=== PATIENT | male | born 1960 | race Caucasian/White ===

== ENCOUNTER → 2023-11-22 16:01 | Outpatient (REF) | payer BC, SELFPAY ==
[2023-11-22 17:00] LABS: ALT (SGPT) 31 U/L (0-50); AST (SGOT) 38 U/L (17-59); Albumin 4.6 g/dl (3.5-5.0); Alkaline Phosphatase 86 U/L (38-126); Blood Urea Nitrogen 22 mg/dl (9-20); Calcium 9.5 mg/dl (8.4-10.2); Carbon Dioxide 29 mmol/L (22-30); Chloride 101 mmol/L (98-107); Glucose 105 mg/dl (70-99); HDL Cholesterol 36 mg/dl; LDL Cholesterol, Calculated 66 mg/dl; Potassium 4.3 mmol/L (3.5-5.1); Sodium 141 mmol/L (135-145); Total Bilirubin 1.1 mg/dl (0.2-1.3); Total Cholesterol 132 mg/dl (50-199); Total Protein 7.7 g/dl (6.3-8.2); Triglyceride 152 mg/dl (10-149); Very Low Density Lipoprotein 30 mg/dl (0-30); eGFR > 60.00
[2023-11-22 17:28] LABS: PSA, Total - Screen 0.21 ng/ml (0.0-4.0); TSH 1.55 uIU/ml (0.47-4.68)
== END ==
LOC: RAD 16:01
PROVIDERS: ATTENDING PHYSICIAN Internal Medicine Endocrinology, Diabetes & Metabolism; FAMILY PHYSICIAN Family Medicine
DX: E04.2 Nontoxic multinodular goiter (principal); R35.1 Nocturia
CPT/HCPCS: 36415; 76536; 80053; 80061; 84443; G0103

== ENCOUNTER → 2024-03-06 14:14 | Outpatient (REF) | payer BC, SELFPAY | LOC: HWRCS 14:14 | PROVIDERS: ATTENDING PHYSICIAN Nurse Practitioner; FAMILY PHYSICIAN Family Medicine | DX: R07.89 Other chest pain (principal) | CPT/HCPCS: 93306 ==

== ENCOUNTER → 2024-04-09 16:59 | Outpatient (REF) | payer BC, SELFPAY ==
[2024-04-09 18:05] LABS: Blood Urea Nitrogen 22 mg/dl (9-20)
== END ==
LOC: RAD 16:59
PROVIDERS: ATTENDING PHYSICIAN Neurological Surgery; FAMILY PHYSICIAN Family Medicine
DX: M54.16 Radiculopathy, lumbar region (principal)
CPT/HCPCS: 36415; 72110; 84520

== ENCOUNTER → 2024-06-08 13:22 | Outpatient (REF) | payer BC, SELFPAY ==
[2024-06-08 15:39] LABS: ALT (SGPT) 25 U/L (0-50); AST (SGOT) 43 U/L (17-59); Albumin 4.9 g/dl (3.5-5.0); Alkaline Phosphatase 86 U/L (38-126); Blood Urea Nitrogen 22 mg/dl (9-20); Calcium 9.4 mg/dl (8.4-10.2); Carbon Dioxide 26 mmol/L (22-30); Chloride 101 mmol/L (98-107); Glucose 83 mg/dl (70-99); HDL Cholesterol 45 mg/dl; LDL Cholesterol, Calculated 67 mg/dl; Potassium 4.9 mmol/L (3.5-5.1); Sodium 139 mmol/L (135-145); Total Bilirubin 1.5 mg/dl (0.2-1.3); Total Cholesterol 128 mg/dl (50-199); Total Protein 7.6 g/dl (6.3-8.2); Triglyceride 82 mg/dl (10-149); Very Low Density Lipoprotein 16 mg/dl (0-30); eGFR > 60.00
[2024-06-08 16:11] LABS: PSA, Total - Screen 0.24 ng/ml (0.0-4.0); TSH 1.82 uIU/ml (0.47-4.68)
== END ==
LOC: HWRAD 13:22
PROVIDERS: ATTENDING PHYSICIAN Internal Medicine Endocrinology, Diabetes & Metabolism; FAMILY PHYSICIAN Family Medicine
DX: E04.2 Nontoxic multinodular goiter (principal); R35.1 Nocturia
CPT/HCPCS: 36415; 76536; 80053; 80061; 84443; G0103

== ENCOUNTER → 2024-08-11 09:49 | Outpatient (REF) | payer BC, SELFPAY ==
[2024-08-11 11:42] LABS: Blood Urea Nitrogen 19 mg/dl (9-20)
== END ==
LOC: RAD 09:49
PROVIDERS: ATTENDING PHYSICIAN Nurse Practitioner Adult Health; FAMILY PHYSICIAN Family Medicine
DX: M54.16 Radiculopathy, lumbar region (principal)
CPT/HCPCS: 36415; 72131; 82565; 84520

== ENCOUNTER → 2024-09-21 10:04 | Outpatient (REF) | payer BC, SELFPAY | LOC: EMG 10:04 | PROVIDERS: ATTENDING PHYSICIAN Physician Assistant; FAMILY PHYSICIAN Physician Assistant | DX: M96.0 Pseudarthrosis after fusion or arthrodesis (principal) | CPT/HCPCS: 95886; 95910 ==

== ENCOUNTER → 2025-02-06 15:55 | Outpatient (REF) | payer BC, SELFPAY | LOC: HWRAD 15:55 | PROVIDERS: ATTENDING PHYSICIAN Internal Medicine Endocrinology, Diabetes & Metabolism | DX: E04.2 Nontoxic multinodular goiter (principal) | CPT/HCPCS: 76536 ==

== ENCOUNTER → 2025-02-13 16:07 | Outpatient (REF) | payer BC, SELFPAY ==
[2025-02-13 17:38] LABS: ALT (SGPT) 14 U/L (0-50); AST (SGOT) 21 U/L (17-59); Albumin 4.8 g/dl (3.5-5.0); Alkaline Phosphatase 94 U/L (38-126); Blood Urea Nitrogen 16 mg/dl (9-20); Calcium 9.7 mg/dl (8.4-10.2); Carbon Dioxide 29 mmol/L (22-30); Chloride 107 mmol/L (98-107); Glucose 83 mg/dl (70-99); HDL Cholesterol 47 mg/dl; LDL Cholesterol, Calculated 69 mg/dl; Potassium 4.5 mmol/L (3.5-5.1); Sodium 143 mmol/L (135-145); Total Bilirubin 0.8 mg/dl (0.2-1.3); Total Cholesterol 131 mg/dl (50-199); Triglyceride 79 mg/dl (10-149); Very Low Density Lipoprotein 15 mg/dl (0-30); eGFR > 60.00
[2025-02-13 18:09] LABS: PSA, Total - Screen 0.24 ng/ml (0.0-4.0); TSH 1.55 uIU/ml (0.47-4.68)
== END ==
LOC: REG 16:07
PROVIDERS: ATTENDING PHYSICIAN Internal Medicine Endocrinology, Diabetes & Metabolism; FAMILY PHYSICIAN Physician Assistant
DX: E04.2 Nontoxic multinodular goiter (principal); R35.1 Nocturia
CPT/HCPCS: 36415; 80053; 80061; 84443; G0103

== ENCOUNTER 2025-04-01 13:08 | Emergency (ER) | payer BC, SELFPAY ==
[2025-04-01 13:10] VITALS: BP 188/91
--- NOTE | 2025-04-01 14:57 | ED.GENMED ---
History of Present Illness
General
Chief Complaint: Back Pain
Time Seen by Provider: 04/01/25 14:49
Nursing documentation reviewed up to this point in time: agreed with
History of Present Illness
History of Present Illness:
64-year-old male presents to the ER for treatment of lower back pain which has been present over the last several months but acutely worsened today. He denies any injury or trauma. He is status post surgery, most recent more than 4 months ago.
Patient states that the pain is in his usual area of discomfort with occasional feeling of numbness in his right lower extremity. He has been experiencing this since his surgery. He denies any weakness in his legs. He denies any loss of control
of bowel or bladder. He did not take any pain relievers this morning prior to arrival in the ER. He denies any fevers or chills. No recent injection or manipulation. Patient states the pain is so severe he cannot walk.
Past History
Past History
ED Past Medical History: CT; Negative Asthma, HTN, Hypercholesterolemia or NIDDM
ED Past Surgical History: Cardiac (Stent X3) and Other (Colonrectal fissure repair)
Social History
Tobacco: Non-smoker
Alcohol: None
Personal:
Living: with family
Family History
Family History: Diabetes and CAD
Phy Exam
Physical Exam
Physical Exam:
Vital signs reviewed, hypertensive, mucous membranes moist, conjunctiva pink, 2+ DP pulses present symmetric bilateral feet, back exam reveals well-healed surgical incision over lumbar spine, no midline pain on palpation, no erythema, no fluctuance,
no overlying skin changes to bilateral sacroiliac joints, intact sensation to light touch, positive perianal sensation, no foot drop, GCS is 15
Course
Orders/Labs/Results
Orders:
Orders
04/01/25 15:05
Ketorolac [Toradol] 15 mg IV NOW STA
04/01/25 15:06
Diazepam [Valium] 5 mg PO NOW STA
04/01/25 15:08
Lidocaine [Lidocaine 4% Patch] 1 patch TOPICAL ONCE ONE
Apply Lidocaine patch(s) to:: low back
04/01/25 16:56
HYDROmorphone [Dilaudid] 1 mg IV NOW STA
Lumbar Spine, 2 or 3 View [CR Lumbar Spine 2 Or 3 Views] Urgent
Comment:
Reason For Exam: pain, prior surgery
04/01/25 18:09
Oxycodone/Acetaminophen [Percocet 5/325] 1 tablet PO NOW STA
Prednisone [Deltasone] 50 mg PO NOW STA
Vital Signs
Initial and Last Documented VS:
Initial Vital Signs
Temp Pulse Resp BP Pulse Ox
97.8 F 84 18 188/91 97
04/01/25 13:10 04/01/25 13:10 04/01/25 13:10 04/01/25 13:10 04/01/25 13:10
Last Documented Vital Signs
Temp Pulse Resp BP Pulse Ox
98.5 F 76 16 149/78 97
04/01/25 16:02 04/01/25 18:00 04/01/25 18:00 04/01/25 18:00 04/01/25 18:00
Comment
Comment:
Patient given Toradol, lidocaine patch and Valium as initial treatment. He reports no improvement in pain although he does visibly appear to be moving on the stretcher more easily as he had had severe spasm at time of initial evaluation. Will give
dose of Dilaudid and reevaluate. Patient is concerned that there may have been some displacement in the hardware in his spine despite absence of history of trauma, will obtain x-ray to evaluate this concern
MDM/Problems Addressed
Differential Diagnosis Includes:
Differential diagnosis considered but not limited to acute exacerbation of chronic pain, muscle spasm hardware displacement, compression fracture along with other etiologies considered
Chronic conditions affecting care:
Chronic back pain, prior back surgery
*Radiology
Radiology exam reviewed: preliminary read by ED provider (I independently viewed and interpreted x-ray lumbar spine showing extensive presence of hardware, no gross malalignment) and radiology read reviewed (IMPRESSION: Postoperative and multilevel
degenerative changes of the lumbar spine without acute fracture or complication.)
*Pulse Oximetry
SaO2: 97
Oxygen Mode of Delivery: Room air
Patient hypoxic: no
*Critical Care Note
Total Time (30-74mins, 75-104mins- exclusive of procedures): Not Applicable
Patient Management
Escalation/DeEscalation of care consider admission/obs:
I reviewed prescription drug monitoring database information-last prescription written from December 13, [address] Portillo for small amount oxycodone and Valium
Update Note
Update Note:
Patient reported no change in discomfort after administration of Toradol, lidocaine patch and Valium, although he appeared significantly improved during further conversation. He was given dose of Dilaudid with again stated no improvement in pain.
I reviewed with patient and present at bedside no evidence for acute process seen on x-ray. I discussed with him continued use of medications at home including Medrol Dosepak, oxycodone and muscle relaxer. I discussed with him benefit of
follow-up with both pain management as scheduled for next week, in addition to contacting their spine surgeon as soon as possible for further discussion of care plan. I discussed with patient and present at bedside strict return precautions.
They had no questions prior to leaving department. Patient was able to ambulate utilizing his walker with a steady gait and no assistance to leave the department
ED Attending Note
-
Portions of this chart may have been created with voice recognition software.� Occasional wrong word or��sound alike� substitutions may have occurred due to the inherent limitations of voice recognition software.
Discharge Plan
Departure
Patient Disposition: Home (Routine Discharge)
Date of Disposition: 04/01/25
Time of Disposition: 18:10
Patient with high blood pressure during this ER visit?: Yes
Discharge Problem:
Acute back pain
Instructions: Low Back Pain (DC)
Prescriptions:
New
methylprednisolone [Medrol (Canelo)] 4 mg tablets,dose pack
See Rx Instructions .ROUTE .COMPLEX Qty: 21 0RF
Rx Instructions:
orally per package directions
oxycodone-acetaminophen [Percocet] 5-325 mg tablet
1 tab PO Q4HPRN PRN (Reason: pain) Qty: 8 0RF
diazepam [Valium] 5 mg tablet
5 mg PO BID PRN (Reason: muscle spasm) Qty: 7 0RF
No Action
atorvastatin 20 MG tablet
20 mg PO QPM
famotidine 40 MG tablet
40 mg PO HS
Nexium
40 mg PO BID
sennosides [senna] 1 TABLET tablet
2 tab PO BID 0RF
acetaminophen [Tylenol Extra Strength] 500 MG tablet
1,000 mg PO Q6H Qty: 60 0RF
Rx Instructions:
Do not exceed >4000 mg daily.
docusate sodium 100 MG capsule
100 mg PO BID 0RF
hydromorphone 2 MG tablet
2 mg PO Q4HPRN PRN (Reason: moderate-severe pain) Qty: 40 0RF
Rx Instructions:
1 tab moderate pain or 2 if pain severe
dx removal of hardware
ongoing therapy
aspirin [Ion Low Dose Aspirin] 81 MG tablet,delayed release (DR/EC)
81 mg PO DAILY Qty: 0 0RF
Rx Instructions:
Resume 02/01/21.
cyclobenzaprine 10 MG tablet
10 mg PO TIDPRN PRN (Reason: back pain) Qty: 13 0RF
methocarbamol 750 mg tablet
750 - 1,500 mg PO Q8H Qty: 20 0RF
Referrals:
Lewis Baldwin PA [Family Provider, Family Practice]
Activity Restrictions/Additional Instructions:
Please contact your surgeon in the morning to schedule appointment for reevaluation and further care. Return to the ER for any concerns including but not limited to control pain, difficulty urinating, weakness
Interventions
Interventions:
*Risk Screen - Suicide Last Done: 04/01/25 13:10
*General Assessment Last Done: 04/01/25 13:10
*Neglect/Abuse Screening Last Done: 04/01/25 15:42
*ED- Fall Risk Assessment Last Done: 04/01/25 15:40
*ED COVID-19 Vaccine History Last Done: 04/01/25 15:40
*Nursing Disposition Last Done: 04/01/25 18:40
ED-Musculoskeletal Assessment Last Done: 04/01/25 15:42
Discharge Date and Time
Discharge Date/Time: 04/01/25 18:40
Print Language: TAJIK
[2025-04-01] MEDS: VALIUM 5 MG PO (15:30)
[2025-04-01] MEDS: TORADOL 15 MG IV (15:31)
[2025-04-01] MEDS: LIDOCAINE 4% PATCH 1 PATCH TOPICAL (15:37)
[2025-04-01 15:40] VITALS: BMI 31.3
[2025-04-01 16:00] VITALS: BP 152/73
[2025-04-01 16:02] VITALS: BP 143/94
[2025-04-01] MEDS: DILAUDID 1 MG IV (17:00)
[2025-04-01 17:04] VITALS: BP 143/78
[2025-04-01 18:00] VITALS: BP 149/78
[2025-04-01] MEDS: PERCOCET 5/325 1 TABLET PO (18:25)
[2025-04-01] MEDS: DELTASONE 50 MG PO (18:25)
== END 2025-04-01 18:40 | disposition home or self-care (01) ==
LOC: EMR 13:08
PROVIDERS: EMERGENCY PHYSICIAN Emergency Medicine; FAMILY PHYSICIAN Physician Assistant
DX: M54.50 Low back pain, unspecified (principal); M79.604 Pain in right leg; R20.0 Anesthesia of skin; R03.0 Elevated blood-pressure reading, without diagnosis of hypertension; I25.10 Atherosclerotic heart disease of native coronary artery without angina pectoris; J45.909 Unspecified asthma, uncomplicated; K21.9 Gastro-esophageal reflux disease without esophagitis; M19.90 Unspecified osteoarthritis, unspecified site; M48.00 Spinal stenosis, site unspecified; F41.9 Anxiety disorder, unspecified; F32.A Depression, unspecified; I25.2 Old myocardial infarction; Z95.5 Presence of coronary angioplasty implant and graft; Z98.0 Intestinal bypass and anastomosis status; Z91.048 Other nonmedicinal substance allergy status
CPT/HCPCS: 99284; 96374; 96375; 72100

== ENCOUNTER → 2025-05-31 12:00 | Outpatient (REF) | payer BC, SELFPAY ==
[2025-05-31 16:55] LABS: ALT (SGPT) 17 U/L (0-50); AST (SGOT) 23 U/L (17-59); Albumin 4.8 g/dl (3.5-5.0); Alkaline Phosphatase 83 U/L (38-126); Blood Urea Nitrogen 21 mg/dl (9-20); Calcium 9.0 mg/dl (8.4-10.2); Carbon Dioxide 27 mmol/L (22-30); Chloride 104 mmol/L (98-107); Glucose 82 mg/dl (70-99); HDL Cholesterol 56 mg/dl; LDL Cholesterol, Calculated 58 mg/dl; Potassium 4.5 mmol/L (3.5-5.1); Sodium 139 mmol/L (135-145); Total Protein 7.8 g/dl (6.3-8.2); Very Low Density Lipoprotein 22 mg/dl (0-30); eGFR > 60.00
[2025-05-31 18:18] LABS: PSA, Total - Screen 0.20 ng/ml (0.0-4.0); TSH 2.38 uIU/ml (0.47-4.68)
== END ==
LOC: REG 12:00
PROVIDERS: ATTENDING PHYSICIAN Internal Medicine Endocrinology, Diabetes & Metabolism; FAMILY PHYSICIAN Physician Assistant; REFERRING PHYSICIAN Psychiatry & Neurology Neurology
DX: E04.2 Nontoxic multinodular goiter (principal); E23.6 Other disorders of pituitary gland; R35.1 Nocturia; N18.9 Chronic kidney disease, unspecified
CPT/HCPCS: 36415; 80053; 80061; 84443; G0103

== ENCOUNTER → 2025-06-04 15:29 | Outpatient (REF) | payer BC, SELFPAY | LOC: RAD 15:29 | PROVIDERS: ATTENDING PHYSICIAN Internal Medicine Endocrinology, Diabetes & Metabolism; FAMILY PHYSICIAN Physician Assistant; REFERRING PHYSICIAN Psychiatry & Neurology Neurology | DX: E04.2 Nontoxic multinodular goiter (principal); R10.9 Unspecified abdominal pain; R07.9 Chest pain, unspecified | CPT/HCPCS: 71270; 74178; 76536; Q9967 ==

== ENCOUNTER → 2025-06-17 12:03 | Outpatient (REF) | payer BC, SELFPAY | LOC: RAD 12:03 | PROVIDERS: ATTENDING PHYSICIAN Physician Assistant Medical; FAMILY PHYSICIAN Physician Assistant | DX: R05.9 Cough, unspecified (principal) | CPT/HCPCS: 71046 ==